=== PATIENT | male | born 1945 | race Caucasian/White ===

== ENCOUNTER 2017-09-07 20:31 | Emergency (ER) | payer MEDICARE, BC ==
[~2017-09-07] VITALS: Ht 167.6 cm; Wt 84.0 kg
[2017-09-08 01:08] VITALS: BP 118/61
[2017-09-08] MEDS ORDERED: TRIA15CR61 TOP (01:10)
== END 2017-09-08 01:31 | disposition home or self-care (01) ==
LOC: ER 20:32
DX: R21 Rash and other nonspecific skin eruption (principal); G89.29 Other chronic pain; Z79.899 Other long term (current) drug therapy
CPT/HCPCS: 99283